=== PATIENT | male | born 1970 | race Caucasian/White ===

== ENCOUNTER → 2020-08-27 | Outpatient (CLI) | payer OTHER | END | disposition home or self-care (01) | LOC: WOUND 13:09 | PROVIDERS: ATTEND Internal Medicine | DX: E11.621 Type 2 diabetes mellitus with foot ulcer (principal); L97.521 Non-pressure chronic ulcer of other part of left foot limited to breakdown of skin; E11.622 Type 2 diabetes mellitus with other skin ulcer; L97.222 Non-pressure chronic ulcer of left calf with fat layer exposed; E11.40 Type 2 diabetes mellitus with diabetic neuropathy, unspecified; L03.116 Cellulitis of left lower limb; F32.9 Major depressive disorder, single episode, unspecified; I10 Essential (primary) hypertension; E66.01 Morbid (severe) obesity due to excess calories; L84 Corns and callosities; Z68.41 Body mass index [BMI] 40.0-44.9, adult; Z79.899 Other long term (current) drug therapy; Z79.4 Long term (current) use of insulin; Z79.82 Long term (current) use of aspirin; Z89.421 Acquired absence of other right toe(s); Z89.422 Acquired absence of other left toe(s); Z90.89 Acquired absence of other organs | CPT/HCPCS: 97597; G0463 ==

== ENCOUNTER 2020-09-03 13:33 | Outpatient (CLI) | payer OTHER | END 2020-09-03 23:59 | disposition home or self-care (01) | LOC: WOUND 13:33 | PROVIDERS: ATTEND Internal Medicine | DX: E11.621 Type 2 diabetes mellitus with foot ulcer (principal); L97.521 Non-pressure chronic ulcer of other part of left foot limited to breakdown of skin; E11.622 Type 2 diabetes mellitus with other skin ulcer; L97.222 Non-pressure chronic ulcer of left calf with fat layer exposed; E11.40 Type 2 diabetes mellitus with diabetic neuropathy, unspecified; L03.116 Cellulitis of left lower limb; F32.9 Major depressive disorder, single episode, unspecified; I10 Essential (primary) hypertension; E66.01 Morbid (severe) obesity due to excess calories; L84 Corns and callosities; Z68.41 Body mass index [BMI] 40.0-44.9, adult; Z79.899 Other long term (current) drug therapy; Z79.4 Long term (current) use of insulin; Z79.82 Long term (current) use of aspirin; Z89.421 Acquired absence of other right toe(s); Z89.422 Acquired absence of other left toe(s); Z90.89 Acquired absence of other organs | CPT/HCPCS: 97597 ==

== ENCOUNTER 2020-09-10 13:14 | Outpatient (CLI) | payer OTHER | END 2020-09-10 23:59 | disposition home or self-care (01) | LOC: WOUND 13:14 | PROVIDERS: ATTEND Internal Medicine | DX: E11.621 Type 2 diabetes mellitus with foot ulcer (principal); L97.521 Non-pressure chronic ulcer of other part of left foot limited to breakdown of skin; E11.622 Type 2 diabetes mellitus with other skin ulcer; L97.222 Non-pressure chronic ulcer of left calf with fat layer exposed; E11.40 Type 2 diabetes mellitus with diabetic neuropathy, unspecified; L03.116 Cellulitis of left lower limb; F32.9 Major depressive disorder, single episode, unspecified; I10 Essential (primary) hypertension; E66.01 Morbid (severe) obesity due to excess calories; L84 Corns and callosities; Z68.41 Body mass index [BMI] 40.0-44.9, adult; Z79.899 Other long term (current) drug therapy; Z79.4 Long term (current) use of insulin; Z79.82 Long term (current) use of aspirin; Z89.421 Acquired absence of other right toe(s); Z89.422 Acquired absence of other left toe(s); Z90.89 Acquired absence of other organs | CPT/HCPCS: 97597 ==

== ENCOUNTER → 2020-09-17 | Outpatient (CLI) | payer OTHER | END | disposition home or self-care (01) | LOC: CVU 12:58 | PROVIDERS: ATTEND Internal Medicine | DX: I70.293 Other atherosclerosis of native arteries of extremities, bilateral legs (principal); E11.8 Type 2 diabetes mellitus with unspecified complications; E11.621 Type 2 diabetes mellitus with foot ulcer; L97.222 Non-pressure chronic ulcer of left calf with fat layer exposed; Z89.422 Acquired absence of other left toe(s); Z89.421 Acquired absence of other right toe(s) | CPT/HCPCS: 93922; 93925; 93970 ==

== ENCOUNTER → 2020-09-24 | Outpatient (CLI) | payer OTHER | END | disposition home or self-care (01) | LOC: WOUND 12:55 | PROVIDERS: ATTEND Internal Medicine | DX: E11.621 Type 2 diabetes mellitus with foot ulcer (principal); I70.245 Atherosclerosis of native arteries of left leg with ulceration of other part of foot; L97.521 Non-pressure chronic ulcer of other part of left foot limited to breakdown of skin; E11.622 Type 2 diabetes mellitus with other skin ulcer; I70.242 Atherosclerosis of native arteries of left leg with ulceration of calf; L97.222 Non-pressure chronic ulcer of left calf with fat layer exposed; E11.40 Type 2 diabetes mellitus with diabetic neuropathy, unspecified; L03.116 Cellulitis of left lower limb; I70.201 Unspecified atherosclerosis of native arteries of extremities, right leg; I10 Essential (primary) hypertension; E66.01 Morbid (severe) obesity due to excess calories; F32.9 Major depressive disorder, single episode, unspecified; Z68.41 Body mass index [BMI] 40.0-44.9, adult; Z79.4 Long term (current) use of insulin; Z79.82 Long term (current) use of aspirin; Z90.89 Acquired absence of other organs; Z89.421 Acquired absence of other right toe(s); Z89.422 Acquired absence of other left toe(s) | CPT/HCPCS: 99212 ==

== ENCOUNTER → 2020-10-07 | Outpatient (CLI) | payer OTHER | END | disposition home or self-care (01) | LOC: WOUND 14:46 | PROVIDERS: ATTEND Internal Medicine | DX: E11.621 Type 2 diabetes mellitus with foot ulcer (principal); I70.245 Atherosclerosis of native arteries of left leg with ulceration of other part of foot; L97.522 Non-pressure chronic ulcer of other part of left foot with fat layer exposed; E11.622 Type 2 diabetes mellitus with other skin ulcer; I70.242 Atherosclerosis of native arteries of left leg with ulceration of calf; L97.222 Non-pressure chronic ulcer of left calf with fat layer exposed; E11.40 Type 2 diabetes mellitus with diabetic neuropathy, unspecified; L03.116 Cellulitis of left lower limb; I70.201 Unspecified atherosclerosis of native arteries of extremities, right leg; I10 Essential (primary) hypertension; L84 Corns and callosities; F32.9 Major depressive disorder, single episode, unspecified; E66.01 Morbid (severe) obesity due to excess calories; Z68.41 Body mass index [BMI] 40.0-44.9, adult; Z79.4 Long term (current) use of insulin; Z79.82 Long term (current) use of aspirin; Z90.89 Acquired absence of other organs; Z89.422 Acquired absence of other left toe(s); Z89.421 Acquired absence of other right toe(s); Z79.899 Other long term (current) drug therapy | CPT/HCPCS: 11042 ==

== ENCOUNTER → 2020-10-14 | Outpatient (CLI) | payer OTHER | END | disposition home or self-care (01) | LOC: WOUND 14:35 | PROVIDERS: ATTEND Podiatrist Foot & Ankle Surgery | DX: E11.621 Type 2 diabetes mellitus with foot ulcer (principal); I70.245 Atherosclerosis of native arteries of left leg with ulceration of other part of foot; L97.522 Non-pressure chronic ulcer of other part of left foot with fat layer exposed; E11.622 Type 2 diabetes mellitus with other skin ulcer; I70.242 Atherosclerosis of native arteries of left leg with ulceration of calf; L97.222 Non-pressure chronic ulcer of left calf with fat layer exposed; E11.40 Type 2 diabetes mellitus with diabetic neuropathy, unspecified; L03.116 Cellulitis of left lower limb; I70.201 Unspecified atherosclerosis of native arteries of extremities, right leg; I10 Essential (primary) hypertension; L84 Corns and callosities; F32.9 Major depressive disorder, single episode, unspecified; E66.01 Morbid (severe) obesity due to excess calories; Z68.41 Body mass index [BMI] 40.0-44.9, adult; Z79.4 Long term (current) use of insulin; Z79.82 Long term (current) use of aspirin; Z90.89 Acquired absence of other organs; Z89.422 Acquired absence of other left toe(s); Z89.421 Acquired absence of other right toe(s); Z79.899 Other long term (current) drug therapy | CPT/HCPCS: 11042 ==

== ENCOUNTER → 2020-10-19 | Outpatient (CLI) | payer OTHER | END | disposition home or self-care (01) | LOC: RAD 17:39 | PROVIDERS: ATTEND Podiatrist Foot & Ankle Surgery | DX: E11.621 Type 2 diabetes mellitus with foot ulcer (principal); L97.522 Non-pressure chronic ulcer of other part of left foot with fat layer exposed ==

== ENCOUNTER 2020-11-04 15:05 | Outpatient (CLI) | payer OTHER | END 2020-11-04 23:59 | disposition home or self-care (01) | LOC: WOUND 15:05 | PROVIDERS: ATTEND Podiatrist Foot & Ankle Surgery | DX: E11.621 Type 2 diabetes mellitus with foot ulcer (principal); I70.245 Atherosclerosis of native arteries of left leg with ulceration of other part of foot; L97.521 Non-pressure chronic ulcer of other part of left foot limited to breakdown of skin; E11.622 Type 2 diabetes mellitus with other skin ulcer; I70.242 Atherosclerosis of native arteries of left leg with ulceration of calf; L97.222 Non-pressure chronic ulcer of left calf with fat layer exposed; E11.40 Type 2 diabetes mellitus with diabetic neuropathy, unspecified; L03.116 Cellulitis of left lower limb; I70.201 Unspecified atherosclerosis of native arteries of extremities, right leg; I10 Essential (primary) hypertension; L84 Corns and callosities; F32.9 Major depressive disorder, single episode, unspecified; E66.01 Morbid (severe) obesity due to excess calories; Z68.41 Body mass index [BMI] 40.0-44.9, adult; Z79.4 Long term (current) use of insulin; Z79.82 Long term (current) use of aspirin; Z90.89 Acquired absence of other organs; Z89.422 Acquired absence of other left toe(s); Z89.421 Acquired absence of other right toe(s); Z79.899 Other long term (current) drug therapy | CPT/HCPCS: 97597 ==

== ENCOUNTER → 2020-11-11 | Outpatient (CLI) | payer OTHER | END | disposition home or self-care (01) | LOC: WOUND 14:48 | PROVIDERS: ATTEND Podiatrist Foot & Ankle Surgery | DX: E11.621 Type 2 diabetes mellitus with foot ulcer (principal); I70.245 Atherosclerosis of native arteries of left leg with ulceration of other part of foot; L97.522 Non-pressure chronic ulcer of other part of left foot with fat layer exposed; E11.622 Type 2 diabetes mellitus with other skin ulcer; I70.242 Atherosclerosis of native arteries of left leg with ulceration of calf; L97.222 Non-pressure chronic ulcer of left calf with fat layer exposed; E11.40 Type 2 diabetes mellitus with diabetic neuropathy, unspecified; L84 Corns and callosities; I10 Essential (primary) hypertension; E66.01 Morbid (severe) obesity due to excess calories; F32.9 Major depressive disorder, single episode, unspecified; Z68.41 Body mass index [BMI] 40.0-44.9, adult; Z79.4 Long term (current) use of insulin; Z79.82 Long term (current) use of aspirin; Z89.421 Acquired absence of other right toe(s); Z89.422 Acquired absence of other left toe(s) | CPT/HCPCS: 11042 ==

== ENCOUNTER → 2020-11-18 | Outpatient (CLI) | payer OTHER | END | disposition home or self-care (01) | LOC: WOUND 13:42 | PROVIDERS: ATTEND Podiatrist Foot & Ankle Surgery | DX: E11.621 Type 2 diabetes mellitus with foot ulcer (principal); I70.245 Atherosclerosis of native arteries of left leg with ulceration of other part of foot; L97.522 Non-pressure chronic ulcer of other part of left foot with fat layer exposed; E11.622 Type 2 diabetes mellitus with other skin ulcer; I70.242 Atherosclerosis of native arteries of left leg with ulceration of calf; L97.222 Non-pressure chronic ulcer of left calf with fat layer exposed; E11.40 Type 2 diabetes mellitus with diabetic neuropathy, unspecified; L84 Corns and callosities; I10 Essential (primary) hypertension; E66.01 Morbid (severe) obesity due to excess calories; F32.9 Major depressive disorder, single episode, unspecified; Z68.41 Body mass index [BMI] 40.0-44.9, adult; Z79.4 Long term (current) use of insulin; Z79.82 Long term (current) use of aspirin; Z89.421 Acquired absence of other right toe(s); Z89.422 Acquired absence of other left toe(s) | CPT/HCPCS: 11042 ==

== ENCOUNTER 2020-11-25 14:40 | Outpatient (CLI) | payer OTHER | END 2020-11-25 23:59 | disposition home or self-care (01) | LOC: WOUND 14:40 | PROVIDERS: ATTEND Podiatrist Foot & Ankle Surgery | DX: E11.621 Type 2 diabetes mellitus with foot ulcer (principal); I70.245 Atherosclerosis of native arteries of left leg with ulceration of other part of foot; L97.525 Non-pressure chronic ulcer of other part of left foot with muscle involvement without evidence of necrosis; I70.242 Atherosclerosis of native arteries of left leg with ulceration of calf; E11.622 Type 2 diabetes mellitus with other skin ulcer; L97.222 Non-pressure chronic ulcer of left calf with fat layer exposed; E11.40 Type 2 diabetes mellitus with diabetic neuropathy, unspecified; L84 Corns and callosities; I10 Essential (primary) hypertension; E66.01 Morbid (severe) obesity due to excess calories; F32.9 Major depressive disorder, single episode, unspecified; Z68.41 Body mass index [BMI] 40.0-44.9, adult; Z79.4 Long term (current) use of insulin; Z79.82 Long term (current) use of aspirin; Z89.421 Acquired absence of other right toe(s); Z89.422 Acquired absence of other left toe(s); Z79.899 Other long term (current) drug therapy | CPT/HCPCS: 11043; 87070; 87075; 87077; 87147; 87186; 87205 ==

== ENCOUNTER → 2020-12-09 | Outpatient (CLI) | payer OTHER | END | disposition home or self-care (01) | LOC: WOUND 13:34 | PROVIDERS: ATTEND Podiatrist Foot & Ankle Surgery | DX: E11.621 Type 2 diabetes mellitus with foot ulcer (principal); I70.245 Atherosclerosis of native arteries of left leg with ulceration of other part of foot; L97.526 Non-pressure chronic ulcer of other part of left foot with bone involvement without evidence of necrosis; E11.622 Type 2 diabetes mellitus with other skin ulcer; I70.242 Atherosclerosis of native arteries of left leg with ulceration of calf; L97.224 Non-pressure chronic ulcer of left calf with necrosis of bone; E11.40 Type 2 diabetes mellitus with diabetic neuropathy, unspecified; L03.116 Cellulitis of left lower limb; L84 Corns and callosities; I10 Essential (primary) hypertension; E66.01 Morbid (severe) obesity due to excess calories; M79.672 Pain in left foot; F32.9 Major depressive disorder, single episode, unspecified; Z68.41 Body mass index [BMI] 40.0-44.9, adult; Z79.84 Long term (current) use of oral hypoglycemic drugs; Z89.421 Acquired absence of other right toe(s); Z89.422 Acquired absence of other left toe(s); Z90.89 Acquired absence of other organs | CPT/HCPCS: 11044; 87070; 87075; 87077; 87147; 87186; 87205 ==

== ENCOUNTER → 2020-12-16 | Outpatient (CLI) | payer OTHER | END | disposition home or self-care (01) | LOC: WOUND 13:41 | PROVIDERS: ATTEND Podiatrist Foot & Ankle Surgery | DX: E11.621 Type 2 diabetes mellitus with foot ulcer (principal); I70.245 Atherosclerosis of native arteries of left leg with ulceration of other part of foot; L97.526 Non-pressure chronic ulcer of other part of left foot with bone involvement without evidence of necrosis; I70.234 Atherosclerosis of native arteries of right leg with ulceration of heel and midfoot; L97.414 Non-pressure chronic ulcer of right heel and midfoot with necrosis of bone; E11.622 Type 2 diabetes mellitus with other skin ulcer; L97.222 Non-pressure chronic ulcer of left calf with fat layer exposed; E11.40 Type 2 diabetes mellitus with diabetic neuropathy, unspecified; E11.69 Type 2 diabetes mellitus with other specified complication; M86.272 Subacute osteomyelitis, left ankle and foot; L03.116 Cellulitis of left lower limb; I10 Essential (primary) hypertension; E66.01 Morbid (severe) obesity due to excess calories; F32.9 Major depressive disorder, single episode, unspecified; Z79.84 Long term (current) use of oral hypoglycemic drugs; Z68.41 Body mass index [BMI] 40.0-44.9, adult; Z89.421 Acquired absence of other right toe(s); Z89.422 Acquired absence of other left toe(s); Z90.89 Acquired absence of other organs | CPT/HCPCS: 11044 ==

== ENCOUNTER 2020-12-21 10:04 | Outpatient (CLI) | payer OTHER | END 2020-12-21 23:59 | disposition home or self-care (01) | LOC: WOUND 10:04 | PROVIDERS: ATTEND Internal Medicine Infectious Disease | DX: E11.621 Type 2 diabetes mellitus with foot ulcer (principal); I70.234 Atherosclerosis of native arteries of right leg with ulceration of heel and midfoot; L97.414 Non-pressure chronic ulcer of right heel and midfoot with necrosis of bone; I70.245 Atherosclerosis of native arteries of left leg with ulceration of other part of foot; L97.526 Non-pressure chronic ulcer of other part of left foot with bone involvement without evidence of necrosis; I70.242 Atherosclerosis of native arteries of left leg with ulceration of calf; E11.622 Type 2 diabetes mellitus with other skin ulcer; L97.222 Non-pressure chronic ulcer of left calf with fat layer exposed; L03.116 Cellulitis of left lower limb; E11.40 Type 2 diabetes mellitus with diabetic neuropathy, unspecified; E11.69 Type 2 diabetes mellitus with other specified complication; M86.272 Subacute osteomyelitis, left ankle and foot; I10 Essential (primary) hypertension; E66.01 Morbid (severe) obesity due to excess calories; F32.9 Major depressive disorder, single episode, unspecified; A49.01 Methicillin susceptible Staphylococcus aureus infection, unspecified site; L84 Corns and callosities; Z68.41 Body mass index [BMI] 40.0-44.9, adult; Z89.421 Acquired absence of other right toe(s); Z89.422 Acquired absence of other left toe(s); Z90.89 Acquired absence of other organs; Z79.82 Long term (current) use of aspirin; Z79.4 Long term (current) use of insulin; Z79.899 Other long term (current) drug therapy | CPT/HCPCS: 71046; 99214 ==

== ENCOUNTER 2020-12-21 11:20 | Outpatient (CLI) | payer OTHER | END 2020-12-21 23:59 | disposition home or self-care (01) | LOC: CFH 11:20 | PROVIDERS: ATTEND Internal Medicine Infectious Disease | DX: Z02.9 Encounter for administrative examinations, unspecified (principal) ==

== ENCOUNTER 2020-12-28 12:05 | Inpatient (IN) | payer OTHER ==
[~2020-12-28] VITALS: Ht 180.3 cm; Wt 155.3 kg
[2020-12-28] MEDS ORDERED: SODIUM CHLORIDE FLUSH 10ML SYR IVF ONE (12:30)
[2020-12-28] MEDS ORDERED: ACETAMINOPHEN 500 MG TABLET PO ONE (12:30)
[2020-12-28] MEDS ORDERED: SODIUM CHLORIDE 0.9% 1,000ML IVBOLUS ONE (12:30)
[2020-12-28] MEDS ORDERED: ACETAMINOPHEN 500 MG TABLET ONE (12:45)
[2020-12-28 12:56] LABS: BASOPHILS % (AUTO) 0 % (0-1); EOSINOPHILS % (AUTO) 0 % (1-7); LYMPHOCYTES % (AUTO) 5 % (22-44); MEAN CORPUSCULAR HEMOGLOBIN 30.5 pg (27.5-34.5); MEAN CORPUSCULAR HGB CONC 34.3 g/dL (33.2-36.2); MEAN PLATELET VOLUME 8.1 fL (7.4-10.4); MONOCYTES % (AUTO) 8 % (2-9); NEUTROPHILS % (AUTO) 86 % (42-75); PLATELET COUNT 591 x10^3/uL (130-400); RED BLOOD COUNT 3.94 x10^6/uL (4.38-5.82); RED CELL DISTRIBUTION WIDTH 13.6 % (9.4-14.8)
[2020-12-28 13:10] LABS: ALANINE AMINOTRANSFERASE 16 U/L (12-78); ALBUMIN 2.1 g/dL (3.4-5.0); ANION GAP 13 mmol/L (5-15); CALCIUM 9.1 mg/dL (8.5-10.1); CHLORIDE 100 mmol/L (98-107)
--- NOTE | 2020-12-28 13:10 | NUR ---
PT sent by DR Colin for nonhealing left foot wound. IMANI Joy at bedside for evaluation
[2020-12-28 13:13] LABS: ALKALINE PHOSPHATASE 167 U/L (45-117); BILIRUBIN,TOTAL 0.9 mg/dL (0.2-1.0); TOTAL PROTEIN 8.2 g/dL (6.4-8.2)
[2020-12-28] MEDS ORDERED: VANCOMYCIN 2,500 MG in SODIUM CHLORIDE 0.9% 500 ML IV ONE (13:30)
[2020-12-28] MEDS ORDERED: VANCOMYCIN PER PHARMACY MC PRN ×2 (13:30→15:00)
[2020-12-28] MEDS ORDERED: PIPERACILLIN/TAZO 3.375 GM in DEXTROSE 5% 50 ML IVPB ONE (13:30)
[2020-12-28] MEDS ORDERED: ONDANSETRON 2MG/ML, 2ML IVPush PRN (14:00)
[2020-12-28] MEDS ORDERED: ACETAMINOPHEN 325 MG TABLET PO PRN ×2 (14:00→15:00)
--- NOTE | 2020-12-28 14:15 | NUR ---
TASK RN: PT REPORTS PIV CAME OUT UPON ROLLING OVER ON [facility]. NEW PIV STARTED BY HAMZAH RAMOS. 2ND ABX STARTED. CULTURE BAND IN PLACE.
--- NOTE | 2020-12-28 14:20 | NUR ---
PER ERP PT NOT NPO AT THIS TIME. PT PROVIDED W/ WATER PER PT REQUEST.
--- NOTE | 2020-12-28 14:30 | NUR ---
This RN called to get report was on hold for 5 min.
[2020-12-28 14:45] LABS: HCT (SEDRATE) 35.1 % (39.2-51.8)
--- NOTE | 2020-12-28 14:55 | NUR ---
report given to receiving malvin gonzalez
[2020-12-28] MEDS ORDERED: ENOXAPARIN 40 MG/0.4 ML SQ SCH (15:00)
[2020-12-28] MEDS ORDERED: PHARMACOKINETIC MONITORING MC PRN (16:00)
[2020-12-28] MEDS: AMPICILLIN/SULBACTAM 3 GM in SODIUM CHLORIDE 0.9% 100 ML IV SCH ×2 (16:20→21:22)
[2020-12-28 16:37] VITALS: BP 146/78
[2020-12-28] MEDS ORDERED: INSU3INS SQ (17:15)
[2020-12-28] MEDS ORDERED: PIOG30TA67 PO (17:15)
[2020-12-28] MEDS ORDERED: DAPA10TA PO (17:15)
[2020-12-28] MEDS ORDERED: METO25TA91 PO (17:15)
[2020-12-28] MEDS ORDERED: LISI40TA9 PO (17:15)
[2020-12-28] MEDS ORDERED: EMTR1TAB24 PO (17:15)
[2020-12-28] MEDS ORDERED: INSU100I18 SQ (17:15)
[2020-12-28] MEDS ORDERED: ESCI10TA97 PO (17:15)
[2020-12-28] MEDS ORDERED: MULT-658 PO (17:17)
[2020-12-28] MEDS ORDERED: ASPI-963 PO (17:17)
[2020-12-28] MEDS ORDERED: DORZ10DR28 LEFTEYE (17:20)
[2020-12-28] MEDS: LISINOPRIL 10 MG TABLET PO SCH (19:50)
[2020-12-28] MEDS: OXYcodone/APAP 10/325MG TABLET PO PRN (19:53)
[2020-12-28] MEDS: MELATONIN 5 MG TABLET PO SCH (21:21)
[2020-12-28] MEDS: INSULIN LISPRO 100 UNITS/ML, PEN SQ-INSULIN SCH (21:23)
[2020-12-28 21:37] VITALS: BP 138/72
[2020-12-29] MEDS: OXYcodone/APAP 10/325MG TABLET PO PRN ×3 (00:01→19:55)
[2020-12-29 00:42] VITALS: BP 145/71
[2020-12-29] MEDS: VANCOMYCIN 2,200 MG in SODIUM CHLORIDE 0.9% 500 ML IV SCH ×2 (02:31→14:26)
[2020-12-29] MEDS: MORPHINE SULFATE 4 MG/ML, 1ML IVPush PRN (03:01)
[2020-12-29] MEDS: AMPICILLIN/SULBACTAM 3 GM in SODIUM CHLORIDE 0.9% 100 ML IV SCH ×4 (04:38→23:57)
[2020-12-29 05:26] LABS: BASOPHILS % (AUTO) 1 % (0-1); EOSINOPHILS % (AUTO) 1 % (1-7); LYMPHOCYTES % (AUTO) 11 % (22-44); MEAN CORPUSCULAR HEMOGLOBIN 30.3 pg (27.5-34.5); MEAN CORPUSCULAR HGB CONC 33.3 g/dL (33.2-36.2); MEAN PLATELET VOLUME 8.3 fL (7.4-10.4); MONOCYTES % (AUTO) 12 % (2-9); NEUTROPHILS % (AUTO) 75 % (42-75); PLATELET COUNT 549 x10^3/uL (130-400); RED BLOOD COUNT 3.44 x10^6/uL (4.38-5.82); RED CELL DISTRIBUTION WIDTH 13.7 % (9.4-14.8)
[2020-12-29 05:37] LABS: ALBUMIN 1.7 g/dL (3.4-5.0); ANION GAP 8 mmol/L (5-15); CALCIUM 8.4 mg/dL (8.5-10.1); CHLORIDE 104 mmol/L (98-107)
[2020-12-29 05:43] LABS: ALANINE AMINOTRANSFERASE 15 U/L (12-78); ALKALINE PHOSPHATASE 159 U/L (45-117); BILIRUBIN,TOTAL 0.7 mg/dL (0.2-1.0); CREATININE 1.33 mg/dL (0.7-1.3); TOTAL PROTEIN 7.4 g/dL (6.4-8.2)
[2020-12-29] MEDS: INSULIN LISPRO 100 UNITS/ML, PEN SQ-INSULIN SCH ×4 (07:00→20:25)
[2020-12-29] MEDS: OXYcodone IR 5MG TABLET PO PRN ×2 (07:52→14:42)
[2020-12-29] MEDS: ENOXAPARIN 40 MG/0.4 ML SQ SCH ×2 (09:00→20:24)
[2020-12-29 09:29] VITALS: BP 143/78
[2020-12-29] MEDS: LISINOPRIL 10 MG TABLET PO SCH ×2 (09:32→20:24)
[2020-12-29 14:30] VITALS: BP 146/78
[2020-12-29] MEDS ORDERED: GADOTERATE 7.5 MMOL/15ML SYR ONE (16:30)
[2020-12-29 18:57] VITALS: BP 155/68
[2020-12-29] MEDS: MELATONIN 5 MG TABLET PO SCH (20:24)
[2020-12-30 00:33] VITALS: BP 124/77
[2020-12-30] MEDS: OXYcodone IR 5MG TABLET PO PRN ×3 (01:09→22:26)
[2020-12-30] MEDS: VANCOMYCIN 2,200 MG in SODIUM CHLORIDE 0.9% 500 ML IV SCH (02:34)
[2020-12-30] MEDS: AMPICILLIN/SULBACTAM 3 GM in SODIUM CHLORIDE 0.9% 100 ML IV SCH ×4 (06:09→23:50)
[2020-12-30] MEDS: INSULIN LISPRO 100 UNITS/ML, PEN SQ-INSULIN SCH ×4 (07:38→20:30)
[2020-12-30 07:40] VITALS: BP 164/73
[2020-12-30] MEDS: LISINOPRIL 10 MG TABLET PO SCH ×2 (07:40→20:29)
[2020-12-30] MEDS: ENOXAPARIN 40 MG/0.4 ML SQ SCH ×2 (09:00→20:03)
[2020-12-30 09:26] VITALS: BP 150/74
[2020-12-30] MEDS: OXYcodone/APAP 10/325MG TABLET PO PRN ×2 (10:04→18:05)
[2020-12-30 13:25] VITALS: BP 137/90
[2020-12-30 19:22] VITALS: BP 150/76
[2020-12-30] MEDS: MELATONIN 5 MG TABLET PO SCH (20:29)
[2020-12-31 00:04] VITALS: BP 138/73
[2020-12-31] MEDS ORDERED: MEROPENEM 1 GM in SODIUM CHLORIDE 0.9% 100 ML IV SCH (01:00)
[2020-12-31] MEDS: OXYcodone/APAP 10/325MG TABLET PO PRN ×2 (04:06→20:21)
[2020-12-31 06:37] VITALS: BP 137/76
[2020-12-31] MEDS: OXYcodone IR 5MG TABLET PO PRN (06:47)
[2020-12-31] MEDS: INSULIN LISPRO 100 UNITS/ML, PEN SQ-INSULIN SCH ×4 (07:00→20:22)
[2020-12-31] MEDS: LISINOPRIL 10 MG TABLET PO SCH ×2 (07:52→20:20)
[2020-12-31] MEDS: ENOXAPARIN 40 MG/0.4 ML SQ SCH ×2 (07:52→20:21)
[2020-12-31] MEDS ORDERED: BUPIVACAINE/PF 0.5% ONE (10:46)
[2020-12-31] MEDS ORDERED: LIDOCAINE/PF 1%, 30ML ONE (10:46)
[2020-12-31] MEDS: MEROPENEM 1 GM in SODIUM CHLORIDE 0.9% 100 ML IV SCH ×2 (11:00→18:14)
[2020-12-31] MEDS ORDERED: MIDAZOLAM 1 MG/ML, 2ML ONE (11:15)
[2020-12-31] MEDS ORDERED: FENTANYL PF 250 MCG/5ML ONE (11:15)
[2020-12-31] MEDS ORDERED: CHLORHEXIDINE 15 ML UDC ONE (11:33)
[2020-12-31] MEDS ORDERED: CHLORHEXIDINE 15 ML UDC PO ONE (12:00)
[2020-12-31] MEDS ORDERED: VANCOMYCIN 1,000 MG ONE (12:56)
[2020-12-31] MEDS ORDERED: METHOCARBAMOL 1,000 MG in DEXTROSE 5% 100 ML IV PRN (13:30)
[2020-12-31] MEDS ORDERED: LABETALOL 5MG/ML, 20ML IV PRN (13:30)
[2020-12-31] MEDS ORDERED: PROMETHAZINE 25 MG SUPP PR PRN (13:30)
[2020-12-31] MEDS ORDERED: hydrALAzine 20 MG/ML, 1ML IV PRN (13:30)
[2020-12-31] MEDS ORDERED: PROMETHAZINE 25 MG/ML, 1ML IVPush PRN (13:30)
[2020-12-31] MEDS ORDERED: LORazepam 2 MG/ML, 1ML IVPush PRN (13:30)
[2020-12-31] MEDS ORDERED: ONDANSETRON 2MG/ML, 2ML IVPush PRN ×2 (13:30→16:30)
[2020-12-31] MEDS ORDERED: OXYcodone 5 MG/5 ML ORAL.SOL UDC PO PRN (13:30)
[2020-12-31] MEDS ORDERED: ACETAMINOPHEN 325 MG TABLET PO PRN (13:30)
[2020-12-31] MEDS ORDERED: MEPERIDINE/PF 25MG/0.5ML IVPush PRN (13:30)
[2020-12-31] MEDS ORDERED: SUCCINYLCHOLINE 20 MG/ML, 10ML ONE (14:13)
[2020-12-31] MEDS ORDERED: ONDANSETRON 2MG/ML, 2ML ONE (14:13)
[2020-12-31] MEDS ORDERED: CEFAZOLIN 1,000 MG ONE (14:13)
[2020-12-31] MEDS ORDERED: NEOSTIGMINE 1 MG/ML, 10ML ONE (14:13)
[2020-12-31] MEDS ORDERED: GLYCOPYRROLATE 0.2MG/1ML, 5ML ONE (14:13)
[2020-12-31] MEDS ORDERED: SUGAMMADEX 200 MG/2 ML IVPush ONE (14:13)
[2020-12-31] MEDS ORDERED: PROPOFOL 10 MG/ML, 20ML ONE (14:13)
[2020-12-31] MEDS ORDERED: DEXAMETHASONE 4 MG/ML, 1ML ONE (14:13)
[2020-12-31] MEDS ORDERED: ROCURONIUM 10MG/ML,5ML ONE (14:13)
[2020-12-31] MEDS ORDERED: OXYcodone 5 MG/5 ML ORAL.SOL UDC ONE (14:27)
[2020-12-31] MEDS ORDERED: FENTANYL PF 100 MCG/2ML ONE ×2 (14:27→15:17)
[2020-12-31] MEDS: FENTANYL PF 100 MCG/2ML IV PRN ×4 (14:31→15:30)
[2020-12-31] MEDS ORDERED: HYDROmorphone 1 MG/ML, 1ML INJ ONE (14:41)
[2020-12-31] MEDS: HYDROmorphone 1 MG/ML, 1ML INJ IVPush PRN ×2 (14:42→14:47)
[2020-12-31] MEDS ORDERED: hydrALAzine 20 MG/ML, 1ML ONE (15:04)
[2020-12-31] MEDS ORDERED: KETOROLAC 30 MG/1 ML IM PRN (16:30)
[2020-12-31] MEDS ORDERED: HYDROmorphone 1 MG/ML, 1ML INJ IV PRN (16:30)
[2020-12-31] MEDS ORDERED: HYDROcodone/APAP 5/325 TABLET PO PRN (16:30)
[2020-12-31] MEDS ORDERED: OXYcodone/APAP 5/325MG TABLET PO PRN (16:30)
[2020-12-31] MEDS: MORPHINE SULFATE 4 MG/ML, 1ML IVPush PRN ×2 (16:46→21:56)
[2020-12-31 19:01] VITALS: BP 135/68
[2020-12-31] MEDS: MELATONIN 5 MG TABLET PO SCH (20:20)
[2020-12-31] MEDS: DOCUSATE 100 MG CAPSULE PO SCH (20:20)
[2020-12-31] MEDS ORDERED: CEFAZOLIN 1,000 MG IV SCH (22:30)
[2020-12-31] MEDS: CEFAZOLIN PMX 2GM/50ML 50 ML IVPB SCH (22:38)
[2020-12-31 23:22] VITALS: BP 129/74
[2021-01-01] MEDS: OXYcodone/APAP 10/325MG TABLET PO PRN ×3 (01:30→23:03)
[2021-01-01] MEDS: MEROPENEM 1 GM in SODIUM CHLORIDE 0.9% 100 ML IV SCH ×3 (02:45→22:13)
[2021-01-01 04:08] VITALS: BP 134/72
[2021-01-01] MEDS: CEFAZOLIN PMX 2GM/50ML 50 ML IVPB SCH (06:26)
[2021-01-01 07:30] VITALS: BP 159/85
[2021-01-01] MEDS: MORPHINE SULFATE 4 MG/ML, 1ML IVPush PRN ×2 (07:48→15:00)
[2021-01-01] MEDS: DOCUSATE 100 MG CAPSULE PO SCH ×2 (07:50→22:14)
[2021-01-01] MEDS: LISINOPRIL 10 MG TABLET PO SCH ×2 (07:50→22:14)
[2021-01-01] MEDS: ENOXAPARIN 40 MG/0.4 ML SQ SCH ×2 (07:52→22:14)
[2021-01-01] MEDS: INSULIN LISPRO 100 UNITS/ML, PEN SQ-INSULIN SCH ×4 (07:53→23:02)
[2021-01-01 15:01] VITALS: BP 145/79
[2021-01-01 20:00] VITALS: BP 118/63
[2021-01-01] MEDS: MELATONIN 5 MG TABLET PO SCH (22:14)
[2021-01-02 02:00] VITALS: BP 153/77
[2021-01-02] MEDS: OXYcodone/APAP 10/325MG TABLET PO PRN ×2 (04:52→11:40)
[2021-01-02 05:02] LABS: BASOPHILS % (AUTO) 0 % (0-1); EOSINOPHILS % (AUTO) 4 % (1-7); LYMPHOCYTES % (AUTO) 24 % (22-44); MEAN CORPUSCULAR HEMOGLOBIN 29.9 pg (27.5-34.5); MEAN CORPUSCULAR HGB CONC 33.5 g/dL (33.2-36.2); MONOCYTES % (AUTO) 13 % (2-9); NEUTROPHILS % (AUTO) 58 % (42-75); PLATELET COUNT 577 x10^3/uL (130-400); RED BLOOD COUNT 3.52 x10^6/uL (4.38-5.82); RED CELL DISTRIBUTION WIDTH 14.2 % (9.4-14.8)
[2021-01-02 05:12] LABS: ALBUMIN 1.6 g/dL (3.4-5.0); ANION GAP 6 mmol/L (5-15); CALCIUM 8.4 mg/dL (8.5-10.1); CHLORIDE 104 mmol/L (98-107)
[2021-01-02] MEDS: MEROPENEM 1 GM in SODIUM CHLORIDE 0.9% 100 ML IV SCH ×3 (05:43→20:43)
[2021-01-02] MEDS: INSULIN LISPRO 100 UNITS/ML, PEN SQ-INSULIN SCH ×4 (07:35→21:04)
[2021-01-02] MEDS: LISINOPRIL 10 MG TABLET PO SCH ×2 (09:00→20:42)
[2021-01-02] MEDS ORDERED: LISINOPRIL 40 MG TABLET PO SCH (09:00)
[2021-01-02] MEDS ORDERED: METOPROLOL SUCCINATE 25 MG TAB.ER.24H PO SCH (09:00)
[2021-01-02] MEDS: EMTRICITABINE/TENOFOVIR 200 MG/300 MG TABLET PO SCH (09:28)
[2021-01-02] MEDS: DOCUSATE 100 MG CAPSULE PO SCH ×2 (09:28→20:43)
[2021-01-02] MEDS: ASPIRIN 81 MG TABLET EC PO SCH (09:28)
[2021-01-02] MEDS: ESCITALOPRAM 10MG TABLET PO SCH (09:28)
[2021-01-02] MEDS: MULTIVITAMIN 1 TABLET PO SCH (09:28)
[2021-01-02] MEDS: ENOXAPARIN 40 MG/0.4 ML SQ SCH ×2 (09:29→20:43)
[2021-01-02 09:40] VITALS: BP 184/81
[2021-01-02] MEDS ORDERED: KETOROLAC 30 MG/1 ML IM PRN (10:00)
[2021-01-02] MEDS ORDERED: MORPHINE SULFATE 4 MG/ML, 1ML IVPush PRN (11:00)
[2021-01-02] MEDS: SODIUM CHLORIDE 0.9% 1,000 ML IV SCH (11:40)
[2021-01-02] MEDS ORDERED: ACETAMINOPHEN 325 MG TABLET PO SCH (12:00)
[2021-01-02 13:11] VITALS: BP 175/73
[2021-01-02] MEDS: ACETAMINOPHEN 325 MG TABLET PO SCH ×2 (13:51→20:43)
[2021-01-02] MEDS: OXYcodone 5 MG/5 ML ORAL.SOL UDC PO PRN (18:09)
[2021-01-02] MEDS: CARVEDILOL 6.25 MG TABLET PO SCH (18:10)
[2021-01-02 20:01] VITALS: BP 160/78
[2021-01-02] MEDS: MELATONIN 5 MG TABLET PO SCH (20:43)
[2021-01-03] MEDS: SODIUM CHLORIDE 0.9% 1,000 ML IV SCH ×3 (01:22→22:32)
[2021-01-03] MEDS: ACETAMINOPHEN 325 MG TABLET PO SCH ×4 (01:22→22:30)
[2021-01-03 01:45] VITALS: BP 169/82
[2021-01-03 04:59] LABS: BASOPHILS % (AUTO) 1 % (0-1); EOSINOPHILS % (AUTO) 3 % (1-7); LYMPHOCYTES % (AUTO) 27 % (22-44); MEAN CORPUSCULAR HEMOGLOBIN 30.2 pg (27.5-34.5); MEAN CORPUSCULAR HGB CONC 33.8 g/dL (33.2-36.2); MEAN PLATELET VOLUME 7.9 fL (7.4-10.4); MONOCYTES % (AUTO) 21 % (2-9); NEUTROPHILS % (AUTO) 48 % (42-75); PLATELET COUNT 511 x10^3/uL (130-400); RED BLOOD COUNT 3.54 x10^6/uL (4.38-5.82); RED CELL DISTRIBUTION WIDTH 14.1 % (9.4-14.8)
[2021-01-03 05:05] LABS: ALBUMIN 1.7 g/dL (3.4-5.0); ANION GAP 5 mmol/L (5-15); CALCIUM 8.3 mg/dL (8.5-10.1); CHLORIDE 104 mmol/L (98-107)
[2021-01-03 05:12] LABS: HCT (SEDRATE) 31.7 % (39.2-51.8)
[2021-01-03 05:16] VITALS: BP 178/77
[2021-01-03 05:16] LABS: % IRON SATURATION 25 % (20-55); ALANINE AMINOTRANSFERASE 10 U/L (12-78); ALKALINE PHOSPHATASE 164 U/L (45-117); BILIRUBIN,TOTAL 0.3 mg/dL (0.2-1.0); CREATININE 1.28 mg/dL (0.7-1.3); IRON LEVEL 33 mcg/dL (65-175); TOTAL IRON BINDING CAPACITY 130 mcg/dL (250-450)
[2021-01-03] MEDS: CARVEDILOL 6.25 MG TABLET PO SCH ×2 (05:17→18:21)
[2021-01-03] MEDS: MEROPENEM 1 GM in SODIUM CHLORIDE 0.9% 100 ML IV SCH (05:17)
[2021-01-03 07:36] VITALS: BP 175/81
[2021-01-03] MEDS: OXYcodone 5 MG/5 ML ORAL.SOL UDC PO PRN ×2 (08:24→22:40)
[2021-01-03] MEDS: INSULIN LISPRO 100 UNITS/ML, PEN SQ-INSULIN SCH ×4 (08:27→22:39)
[2021-01-03] MEDS: MULTIVITAMIN 1 TABLET PO SCH (08:28)
[2021-01-03] MEDS: ESCITALOPRAM 10MG TABLET PO SCH (08:28)
[2021-01-03] MEDS: LISINOPRIL 10 MG TABLET PO SCH ×2 (08:28→22:31)
[2021-01-03] MEDS: EMTRICITABINE/TENOFOVIR 200 MG/300 MG TABLET PO SCH (08:29)
[2021-01-03] MEDS: ASPIRIN 81 MG TABLET EC PO SCH (08:29)
[2021-01-03] MEDS: BISACODYL 10 MG SUPP PR SCH (08:31)
[2021-01-03] MEDS: ENOXAPARIN 40 MG/0.4 ML SQ SCH ×2 (08:32→22:49)
[2021-01-03] MEDS: AMOXICILLIN/CLAV 500-125MG TABLET PO SCH ×2 (11:55→18:21)
[2021-01-03 13:23] VITALS: BP 167/96
[2021-01-03] MEDS ORDERED: metFORMIN 500 MG TABLET PO SCH (16:30)
[2021-01-03 19:21] VITALS: BP 155/78
[2021-01-03] MEDS: MELATONIN 5 MG TABLET PO SCH (22:31)
[2021-01-03] MEDS: SENNOSIDES 8.6 MG TABLET PO SCH (22:31)
[2021-01-03] MEDS: INSULIN GLARGINE 100 UNITS/ML, PEN SQ-INSULIN SCH (22:38)
[2021-01-04] MEDS: ACETAMINOPHEN 325 MG TABLET PO SCH ×4 (02:55→22:10)
[2021-01-04] MEDS: AMOXICILLIN/CLAV 500-125MG TABLET PO SCH (02:55)
[2021-01-04 03:27] VITALS: BP 153/73
[2021-01-04] MEDS: CARVEDILOL 6.25 MG TABLET PO SCH ×2 (06:14→17:29)
[2021-01-04] MEDS: OXYcodone 5 MG/5 ML ORAL.SOL UDC PO PRN ×2 (06:16→22:10)
[2021-01-04] MEDS: INSULIN LISPRO 100 UNITS/ML, PEN SQ-INSULIN SCH ×4 (07:58→22:38)
[2021-01-04] MEDS: ENOXAPARIN 40 MG/0.4 ML SQ SCH ×2 (07:58→22:11)
[2021-01-04] MEDS: MULTIVITAMIN 1 TABLET PO SCH (07:59)
[2021-01-04] MEDS: EMTRICITABINE/TENOFOVIR 200 MG/300 MG TABLET PO SCH (07:59)
[2021-01-04] MEDS: LISINOPRIL 10 MG TABLET PO SCH ×2 (07:59→22:09)
[2021-01-04] MEDS: ASPIRIN 81 MG TABLET EC PO SCH (08:00)
[2021-01-04 08:25] VITALS: BP 150/83
[2021-01-04] MEDS ORDERED: METHYLNALTREXONE 12 MG/0.6 ML SYR SQ ONE (08:30)
[2021-01-04] MEDS: BISACODYL 10 MG SUPP PR SCH (09:00)
[2021-01-04] MEDS: ESCITALOPRAM 10MG TABLET PO SCH (11:02)
[2021-01-04] MEDS: AMOXICILLIN/CLAV 875-125MG TABLET PO SCH ×2 (11:02→15:59)
[2021-01-04] MEDS: SODIUM CHLORIDE 0.9% 1,000 ML IV SCH (12:40)
[2021-01-04 14:00] VITALS: BP 159/79
[2021-01-04 19:00] VITALS: BP 153/81
[2021-01-04] MEDS: MELATONIN 5 MG TABLET PO SCH (22:08)
[2021-01-04] MEDS: SENNOSIDES 8.6 MG TABLET PO SCH (22:09)
[2021-01-04] MEDS: INSULIN GLARGINE 100 UNITS/ML, PEN SQ-INSULIN SCH (22:39)
[2021-01-05 01:50] VITALS: BP 141/63
[2021-01-05] MEDS: SODIUM CHLORIDE 0.9% 1,000 ML IV SCH (02:00)
[2021-01-05] MEDS: AMOXICILLIN/CLAV 875-125MG TABLET PO SCH ×3 (03:53→17:10)
[2021-01-05] MEDS: ACETAMINOPHEN 325 MG TABLET PO SCH ×4 (03:53→21:11)
[2021-01-05] MEDS: OXYcodone 5 MG/5 ML ORAL.SOL UDC PO PRN (06:05)
[2021-01-05] MEDS: CARVEDILOL 6.25 MG TABLET PO SCH ×2 (06:05→17:10)
[2021-01-05 07:24] VITALS: BP 147/75
[2021-01-05] MEDS: ESCITALOPRAM 10MG TABLET PO SCH (07:59)
[2021-01-05] MEDS: MULTIVITAMIN 1 TABLET PO SCH (07:59)
[2021-01-05] MEDS: ASPIRIN 81 MG TABLET EC PO SCH (07:59)
[2021-01-05] MEDS: LISINOPRIL 10 MG TABLET PO SCH ×2 (07:59→21:11)
[2021-01-05] MEDS: INSULIN LISPRO 100 UNITS/ML, PEN SQ-INSULIN SCH ×5 (08:00→21:16)
[2021-01-05] MEDS ORDERED: BISACODYL 10 MG SUPP PR PRN (08:30)
[2021-01-05] MEDS: EMTRICITABINE/TENOFOVIR 200 MG/300 MG TABLET PO SCH (09:14)
[2021-01-05] MEDS: ENOXAPARIN 40 MG/0.4 ML SQ SCH ×2 (09:14→21:12)
[2021-01-05 14:24] VITALS: BP 166/72
[2021-01-05 18:57] VITALS: BP 139/69
[2021-01-05] MEDS: TIMOLOL OPHTH 0.5%, 5ML LEFTEYE SCH (21:00)
[2021-01-05] MEDS ORDERED: INSULIN GLARGINE 100 UNITS/ML, PEN SQ-INSULIN SCH (21:00)
[2021-01-05] MEDS: DORZOLAMIDE OPHTH 2%, 10ML LEFTEYE SCH (21:10)
[2021-01-05] MEDS: MELATONIN 5 MG TABLET PO SCH (21:11)
[2021-01-05] MEDS: SENNOSIDES 8.6 MG TABLET PO SCH (21:11)
[2021-01-06 01:17] VITALS: BP 166/80
[2021-01-06] MEDS: AMOXICILLIN/CLAV 875-125MG TABLET PO SCH ×3 (03:24→18:05)
[2021-01-06] MEDS: ACETAMINOPHEN 325 MG TABLET PO SCH ×4 (03:25→21:16)
[2021-01-06] MEDS: CARVEDILOL 6.25 MG TABLET PO SCH ×2 (06:30→18:06)
[2021-01-06 07:20] VITALS: BP 153/85
[2021-01-06] MEDS: INSULIN LISPRO 100 UNITS/ML, PEN SQ-INSULIN SCH ×4 (08:42→21:18)
[2021-01-06] MEDS: ENOXAPARIN 40 MG/0.4 ML SQ SCH ×2 (08:42→21:16)
[2021-01-06] MEDS: DORZOLAMIDE OPHTH 2%, 10ML LEFTEYE SCH ×2 (08:43→21:17)
[2021-01-06] MEDS: EMTRICITABINE/TENOFOVIR 200 MG/300 MG TABLET PO SCH (08:44)
[2021-01-06] MEDS: ESCITALOPRAM 10MG TABLET PO SCH (08:45)
[2021-01-06] MEDS: MULTIVITAMIN 1 TABLET PO SCH (08:45)
[2021-01-06] MEDS: LISINOPRIL 10 MG TABLET PO SCH ×2 (08:45→21:15)
[2021-01-06] MEDS: ASPIRIN 81 MG TABLET EC PO SCH (08:46)
[2021-01-06] MEDS: TIMOLOL OPHTH 0.5%, 5ML LEFTEYE SCH ×2 (08:46→21:00)
[2021-01-06] MEDS: ISOSORBIDE DINITRATE 10 MG TABLET PO SCH ×3 (08:59→21:15)
[2021-01-06 14:30] VITALS: BP 151/77
[2021-01-06 18:34] VITALS: BP 147/68
[2021-01-06] MEDS: SENNOSIDES 8.6 MG TABLET PO SCH (21:00)
[2021-01-06] MEDS: MELATONIN 5 MG TABLET PO SCH (21:16)
[2021-01-06] MEDS: INSULIN GLARGINE 100 UNITS/ML, PEN SQ-INSULIN SCH (21:18)
[2021-01-07 02:29] VITALS: BP 119/54
[2021-01-07] MEDS: AMOXICILLIN/CLAV 875-125MG TABLET PO SCH ×3 (02:38→17:56)
[2021-01-07] MEDS: ACETAMINOPHEN 325 MG TABLET PO SCH ×4 (03:58→22:53)
[2021-01-07 05:04] LABS: BASOPHILS % (AUTO) 0 % (0-1); EOSINOPHILS % (AUTO) 4 % (1-7); LYMPHOCYTES % (AUTO) 34 % (22-44); MEAN CORPUSCULAR HEMOGLOBIN 29.9 pg (27.5-34.5); MEAN CORPUSCULAR HGB CONC 33.6 g/dL (33.2-36.2); MEAN PLATELET VOLUME 7.7 fL (7.4-10.4); MONOCYTES % (AUTO) 13 % (2-9); NEUTROPHILS % (AUTO) 48 % (42-75); PLATELET COUNT 441 x10^3/uL (130-400); RED BLOOD COUNT 3.48 x10^6/uL (4.38-5.82); RED CELL DISTRIBUTION WIDTH 13.9 % (9.4-14.8)
[2021-01-07 05:18] LABS: ALANINE AMINOTRANSFERASE 19 U/L (12-78); ALBUMIN 1.8 g/dL (3.4-5.0); ANION GAP 3 mmol/L (5-15); CALCIUM 8.6 mg/dL (8.5-10.1); CHLORIDE 108 mmol/L (98-107); CREATININE 1.04 mg/dL (0.7-1.3)
[2021-01-07 05:20] LABS: ALKALINE PHOSPHATASE 121 U/L (45-117); BILIRUBIN,TOTAL 0.3 mg/dL (0.2-1.0); TOTAL PROTEIN 6.3 g/dL (6.4-8.2)
[2021-01-07] MEDS: CARVEDILOL 6.25 MG TABLET PO SCH ×3 (06:23→17:03)
[2021-01-07] MEDS: INSULIN LISPRO 100 UNITS/ML, PEN SQ-INSULIN SCH ×4 (07:47→20:54)
[2021-01-07 08:14] VITALS: BP 124/71
[2021-01-07] MEDS: MULTIVITAMIN 1 TABLET PO SCH (09:18)
[2021-01-07] MEDS: ENOXAPARIN 40 MG/0.4 ML SQ SCH ×2 (09:18→20:52)
[2021-01-07] MEDS: TIMOLOL OPHTH 0.5%, 5ML LEFTEYE SCH ×2 (09:18→20:54)
[2021-01-07] MEDS: DORZOLAMIDE OPHTH 2%, 10ML LEFTEYE SCH ×2 (09:18→20:50)
[2021-01-07] MEDS: LISINOPRIL 10 MG TABLET PO SCH ×2 (09:19→20:51)
[2021-01-07] MEDS: ESCITALOPRAM 10MG TABLET PO SCH (09:19)
[2021-01-07] MEDS: ASPIRIN 81 MG TABLET EC PO SCH (09:19)
[2021-01-07] MEDS: ISOSORBIDE DINITRATE 10 MG TABLET PO SCH ×3 (09:19→20:51)
[2021-01-07] MEDS: EMTRICITABINE/TENOFOVIR 200 MG/300 MG TABLET PO SCH (09:19)
[2021-01-07 13:31] VITALS: BP 137/67
[2021-01-07 17:00] VITALS: BP 148/69
[2021-01-07 19:24] VITALS: BP 141/66
[2021-01-07] MEDS: MELATONIN 5 MG TABLET PO SCH (20:51)
[2021-01-07] MEDS: SENNOSIDES 8.6 MG TABLET PO SCH (20:52)
[2021-01-07] MEDS: INSULIN GLARGINE 100 UNITS/ML, PEN SQ-INSULIN SCH (20:53)
[2021-01-07] MEDS: OXYcodone 5 MG/5 ML ORAL.SOL UDC PO PRN (20:54)
[2021-01-08 02:49] VITALS: BP 123/64
[2021-01-08] MEDS: AMOXICILLIN/CLAV 875-125MG TABLET PO SCH ×3 (02:53→18:29)
[2021-01-08] MEDS: ACETAMINOPHEN 325 MG TABLET PO SCH ×4 (04:00→21:34)
[2021-01-08 06:52] VITALS: BP 130/63
[2021-01-08] MEDS: TIMOLOL OPHTH 0.5%, 5ML LEFTEYE SCH ×2 (07:59→21:00)
[2021-01-08] MEDS: CARVEDILOL 6.25 MG TABLET PO SCH ×2 (08:06→16:51)
[2021-01-08] MEDS: LISINOPRIL 10 MG TABLET PO SCH ×2 (08:07→21:35)
[2021-01-08] MEDS: ESCITALOPRAM 10MG TABLET PO SCH (08:07)
[2021-01-08] MEDS: EMTRICITABINE/TENOFOVIR 200 MG/300 MG TABLET PO SCH (08:07)
[2021-01-08] MEDS: MULTIVITAMIN 1 TABLET PO SCH (08:07)
[2021-01-08] MEDS: ISOSORBIDE DINITRATE 10 MG TABLET PO SCH ×3 (08:07→21:34)
[2021-01-08] MEDS: ASPIRIN 81 MG TABLET EC PO SCH (08:07)
[2021-01-08] MEDS: DORZOLAMIDE OPHTH 2%, 10ML LEFTEYE SCH ×2 (08:08→21:37)
[2021-01-08] MEDS: INSULIN LISPRO 100 UNITS/ML, PEN SQ-INSULIN SCH ×4 (08:10→21:31)
[2021-01-08] MEDS: ENOXAPARIN 40 MG/0.4 ML SQ SCH ×2 (08:10→21:31)
[2021-01-08 12:26] VITALS: BP 143/70
[2021-01-08 19:41] VITALS: BP 144/69
[2021-01-08] MEDS: SENNOSIDES 8.6 MG TABLET PO SCH (21:00)
[2021-01-08] MEDS: INSULIN GLARGINE 100 UNITS/ML, PEN SQ-INSULIN SCH (21:31)
[2021-01-08] MEDS: MELATONIN 5 MG TABLET PO SCH (21:35)
[2021-01-09 01:40] VITALS: BP 138/71
[2021-01-09] MEDS: AMOXICILLIN/CLAV 875-125MG TABLET PO SCH ×3 (01:46→18:21)
[2021-01-09] MEDS: OXYcodone 5 MG/5 ML ORAL.SOL UDC PO PRN ×3 (01:47→21:15)
[2021-01-09] MEDS: ACETAMINOPHEN 325 MG TABLET PO SCH ×3 (05:27→18:21)
[2021-01-09] MEDS: CARVEDILOL 6.25 MG TABLET PO SCH ×2 (05:27→18:20)
[2021-01-09 07:15] VITALS: BP 154/76
[2021-01-09] MEDS: DORZOLAMIDE OPHTH 2%, 10ML LEFTEYE SCH ×2 (09:08→21:12)
[2021-01-09] MEDS: TIMOLOL OPHTH 0.5%, 5ML LEFTEYE SCH (09:08)
[2021-01-09] MEDS: INSULIN LISPRO 100 UNITS/ML, PEN SQ-INSULIN SCH ×4 (09:08→21:35)
[2021-01-09] MEDS: ASPIRIN 81 MG TABLET EC PO SCH (09:09)
[2021-01-09] MEDS: ESCITALOPRAM 10MG TABLET PO SCH (09:09)
[2021-01-09] MEDS: EMTRICITABINE/TENOFOVIR 200 MG/300 MG TABLET PO SCH (09:09)
[2021-01-09] MEDS: MULTIVITAMIN 1 TABLET PO SCH (09:09)
[2021-01-09] MEDS: ENOXAPARIN 40 MG/0.4 ML SQ SCH ×2 (09:09→21:18)
[2021-01-09] MEDS: ISOSORBIDE DINITRATE 10 MG TABLET PO SCH ×3 (09:09→21:15)
[2021-01-09] MEDS: LISINOPRIL 10 MG TABLET PO SCH ×2 (09:10→21:16)
[2021-01-09 13:00] VITALS: BP 124/71
[2021-01-09 16:15] VITALS: BP 134/68
[2021-01-09 18:44] VITALS: BP 127/67
[2021-01-09] MEDS: SENNOSIDES 8.6 MG TABLET PO SCH (19:46)
[2021-01-09] MEDS: MELATONIN 5 MG TABLET PO SCH (21:00)
[2021-01-09] MEDS: INSULIN GLARGINE 100 UNITS/ML, PEN SQ-INSULIN SCH (21:19)
[2021-01-10] MEDS: ACETAMINOPHEN 325 MG TABLET PO SCH ×4 (00:48→18:43)
[2021-01-10 00:50] VITALS: BP 131/71
[2021-01-10] MEDS: AMOXICILLIN/CLAV 875-125MG TABLET PO SCH ×3 (02:27→18:42)
[2021-01-10 05:22] LABS: HCT (SEDRATE) 30.1 % (39.2-51.8)
[2021-01-10 05:29] LABS: ALBUMIN 2.1 g/dL (3.4-5.0); ANION GAP 3 mmol/L (5-15); CALCIUM 8.7 mg/dL (8.5-10.1); CHLORIDE 108 mmol/L (98-107)
[2021-01-10 05:31] LABS: BASOPHILS % (AUTO) 1 % (0-1); EOSINOPHILS % (AUTO) 4 % (1-7); LYMPHOCYTES % (AUTO) 34 % (22-44); MEAN CORPUSCULAR HEMOGLOBIN 29.6 pg (27.5-34.5); MEAN CORPUSCULAR HGB CONC 33.4 g/dL (33.2-36.2); MEAN PLATELET VOLUME 8.3 fL (7.4-10.4); MONOCYTES % (AUTO) 12 % (2-9); NEUTROPHILS % (AUTO) 49 % (42-75); PLATELET COUNT 339 x10^3/uL (130-400); RED BLOOD COUNT 3.37 x10^6/uL (4.38-5.82); RED CELL DISTRIBUTION WIDTH 14.4 % (9.4-14.8)
[2021-01-10 05:35] LABS: ALANINE AMINOTRANSFERASE 29 U/L (12-78); ALKALINE PHOSPHATASE 105 U/L (45-117); BILIRUBIN,TOTAL 0.6 mg/dL (0.2-1.0); CREATININE 1.13 mg/dL (0.7-1.3); TOTAL PROTEIN 6.6 g/dL (6.4-8.2)
[2021-01-10] MEDS: CARVEDILOL 6.25 MG TABLET PO SCH (06:31)
[2021-01-10 08:00] VITALS: BP 157/80
[2021-01-10] MEDS: EMTRICITABINE/TENOFOVIR 200 MG/300 MG TABLET PO SCH (08:54)
[2021-01-10] MEDS: ENOXAPARIN 40 MG/0.4 ML SQ SCH ×2 (08:54→21:32)
[2021-01-10] MEDS: DORZOLAMIDE OPHTH 2%, 10ML LEFTEYE SCH ×2 (08:54→21:46)
[2021-01-10] MEDS: ISOSORBIDE DINITRATE 10 MG TABLET PO SCH ×3 (08:54→21:31)
[2021-01-10] MEDS: INSULIN LISPRO 100 UNITS/ML, PEN SQ-INSULIN SCH ×4 (08:54→21:48)
[2021-01-10] MEDS: ESCITALOPRAM 10MG TABLET PO SCH (08:55)
[2021-01-10] MEDS: ASPIRIN 81 MG TABLET EC PO SCH (08:55)
[2021-01-10] MEDS: LISINOPRIL 10 MG TABLET PO SCH ×2 (08:55→21:32)
[2021-01-10] MEDS: MULTIVITAMIN 1 TABLET PO SCH (08:55)
[2021-01-10] MEDS: OXYcodone 5 MG/5 ML ORAL.SOL UDC PO PRN ×2 (10:47→21:47)
[2021-01-10 14:00] VITALS: BP 161/81
[2021-01-10] MEDS: CARVEDILOL 12.5 MG TABLET PO SCH (18:43)
[2021-01-10 19:18] VITALS: BP 145/69
[2021-01-10] MEDS: MELATONIN 5 MG TABLET PO SCH (21:00)
[2021-01-10] MEDS: SENNOSIDES 8.6 MG TABLET PO SCH (21:32)
[2021-01-10] MEDS: INSULIN GLARGINE 100 UNITS/ML, PEN SQ-INSULIN SCH (21:48)
[2021-01-11] MEDS: ACETAMINOPHEN 325 MG TABLET PO SCH ×2 (00:22→06:41)
[2021-01-11] MEDS: AMOXICILLIN/CLAV 875-125MG TABLET PO SCH ×3 (02:23→17:11)
[2021-01-11 02:24] VITALS: BP 126/69
[2021-01-11 06:28] VITALS: BP 139/74
[2021-01-11] MEDS: CARVEDILOL 12.5 MG TABLET PO SCH ×2 (06:28→17:12)
[2021-01-11] MEDS: INSULIN LISPRO 100 UNITS/ML, PEN SQ-INSULIN SCH ×4 (07:00→21:33)
[2021-01-11 07:53] VITALS: BP 133/74
[2021-01-11] MEDS: ASPIRIN 81 MG TABLET EC PO SCH (10:02)
[2021-01-11] MEDS: ISOSORBIDE DINITRATE 10 MG TABLET PO SCH ×3 (10:02→20:57)
[2021-01-11] MEDS: ESCITALOPRAM 10MG TABLET PO SCH (10:03)
[2021-01-11] MEDS: LISINOPRIL 10 MG TABLET PO SCH ×2 (10:05→20:57)
[2021-01-11] MEDS: MULTIVITAMIN 1 TABLET PO SCH (10:05)
[2021-01-11] MEDS: EMTRICITABINE/TENOFOVIR 200 MG/300 MG TABLET PO SCH (10:13)
[2021-01-11] MEDS: DORZOLAMIDE OPHTH 2%, 10ML LEFTEYE SCH ×2 (10:14→21:33)
[2021-01-11] MEDS: ENOXAPARIN 40 MG/0.4 ML SQ SCH ×2 (10:14→20:56)
[2021-01-11 12:21] VITALS: BP 152/69
[2021-01-11 17:07] VITALS: BP 151/76
[2021-01-11 19:17] VITALS: BP 163/76
[2021-01-11] MEDS: MELATONIN 5 MG TABLET PO SCH (20:57)
[2021-01-11] MEDS: SENNOSIDES 8.6 MG TABLET PO SCH (20:58)
[2021-01-11] MEDS: OXYcodone 5 MG/5 ML ORAL.SOL UDC PO PRN (20:58)
[2021-01-11] MEDS: INSULIN GLARGINE 100 UNITS/ML, PEN SQ-INSULIN SCH (21:32)
[2021-01-11] MEDS: ACETAMINOPHEN 325 MG TABLET PO PRN (23:18)
[2021-01-12 00:57] VITALS: BP 155/76
[2021-01-12] MEDS: AMOXICILLIN/CLAV 875-125MG TABLET PO SCH ×3 (02:25→18:47)
[2021-01-12] MEDS: CARVEDILOL 12.5 MG TABLET PO SCH ×2 (06:17→17:22)
[2021-01-12 07:58] VITALS: BP 144/73
[2021-01-12] MEDS: EMTRICITABINE/TENOFOVIR 200 MG/300 MG TABLET PO SCH (08:22)
[2021-01-12] MEDS: ASPIRIN 81 MG TABLET EC PO SCH (08:23)
[2021-01-12] MEDS: MULTIVITAMIN 1 TABLET PO SCH (08:23)
[2021-01-12] MEDS: ISOSORBIDE DINITRATE 10 MG TABLET PO SCH ×3 (08:23→21:57)
[2021-01-12] MEDS: ENOXAPARIN 40 MG/0.4 ML SQ SCH ×2 (08:23→21:58)
[2021-01-12] MEDS: ESCITALOPRAM 10MG TABLET PO SCH (08:23)
[2021-01-12] MEDS: LISINOPRIL 10 MG TABLET PO SCH ×2 (08:23→21:57)
[2021-01-12] MEDS: DORZOLAMIDE OPHTH 2%, 10ML LEFTEYE SCH ×2 (08:24→22:00)
[2021-01-12] MEDS: INSULIN LISPRO 100 UNITS/ML, PEN SQ-INSULIN SCH ×4 (08:24→21:59)
[2021-01-12] MEDS: ACETAMINOPHEN 325 MG TABLET PO PRN (10:11)
[2021-01-12 12:25] VITALS: BP 144/75
[2021-01-12 19:48] VITALS: BP 135/71
[2021-01-12] MEDS: MELATONIN 5 MG TABLET PO SCH (21:00)
[2021-01-12] MEDS: SENNOSIDES 8.6 MG TABLET PO SCH (21:00)
[2021-01-12] MEDS: INSULIN GLARGINE 100 UNITS/ML, PEN SQ-INSULIN SCH (22:00)
[2021-01-13 02:30] VITALS: BP 110/64
[2021-01-13] MEDS: AMOXICILLIN/CLAV 875-125MG TABLET PO SCH ×3 (02:30→17:46)
[2021-01-13] MEDS: CARVEDILOL 12.5 MG TABLET PO SCH ×2 (06:40→17:46)
[2021-01-13] MEDS: INSULIN LISPRO 100 UNITS/ML, PEN SQ-INSULIN SCH ×4 (07:00→21:40)
[2021-01-13 08:32] VITALS: BP 120/71
[2021-01-13] MEDS: ESCITALOPRAM 10MG TABLET PO SCH (08:35)
[2021-01-13] MEDS: MULTIVITAMIN 1 TABLET PO SCH (08:35)
[2021-01-13] MEDS: ASPIRIN 81 MG TABLET EC PO SCH (08:36)
[2021-01-13] MEDS: LISINOPRIL 10 MG TABLET PO SCH ×2 (08:36→21:41)
[2021-01-13] MEDS: ISOSORBIDE DINITRATE 10 MG TABLET PO SCH ×3 (08:36→21:42)
[2021-01-13] MEDS: ENOXAPARIN 40 MG/0.4 ML SQ SCH ×2 (08:38→21:40)
[2021-01-13] MEDS: EMTRICITABINE/TENOFOVIR 200 MG/300 MG TABLET PO SCH (10:18)
[2021-01-13] MEDS: DORZOLAMIDE OPHTH 2%, 10ML LEFTEYE SCH ×2 (10:18→21:00)
[2021-01-13 14:40] VITALS: BP 145/74
[2021-01-13 16:17] VITALS: BP 160/80
[2021-01-13] MEDS ORDERED: CELE200C PO (16:56)
[2021-01-13 20:14] VITALS: BP 162/67
[2021-01-13] MEDS: MELATONIN 5 MG TABLET PO SCH (21:00)
[2021-01-13] MEDS: INSULIN GLARGINE 100 UNITS/ML, PEN SQ-INSULIN SCH (21:39)
[2021-01-13] MEDS: SENNOSIDES 8.6 MG TABLET PO SCH (21:41)
== END 2021-01-13 22:00 | DRG 854 ==
LOC: ED 12:32 → EDIP 13:39 → 3N 14:23 → 4NE 01-01 10:16
PROVIDERS: ADMIT Hospitalist; ATTEND Family Medicine
PROC: 5A09357 Assistance with Respiratory Ventilation, Less than 24 Consecutive Hours, Continuous Positive Airway Pressure (ICD-10-PCS; 2020-12-29)
PROC: 5A09357 Assistance with Respiratory Ventilation, Less than 24 Consecutive Hours, Continuous Positive Airway Pressure (ICD-10-PCS; 2020-12-30)
PROC: 5A09357 Assistance with Respiratory Ventilation, Less than 24 Consecutive Hours, Continuous Positive Airway Pressure (ICD-10-PCS; 2020-12-31)
PROC: 0Y6J0Z1 Detachment at Left Lower Leg, High, Open Approach (ICD-10-PCS; principal; 2020-12-31 12:00)
PROC: 5A09357 Assistance with Respiratory Ventilation, Less than 24 Consecutive Hours, Continuous Positive Airway Pressure (ICD-10-PCS; 2021-01-04)
PROC: 5A09357 Assistance with Respiratory Ventilation, Less than 24 Consecutive Hours, Continuous Positive Airway Pressure (ICD-10-PCS; 2021-01-05)
PROC: 5A09357 Assistance with Respiratory Ventilation, Less than 24 Consecutive Hours, Continuous Positive Airway Pressure (ICD-10-PCS; 2021-01-06)
PROC: 5A09357 Assistance with Respiratory Ventilation, Less than 24 Consecutive Hours, Continuous Positive Airway Pressure (ICD-10-PCS; 2021-01-07)
PROC: 5A09357 Assistance with Respiratory Ventilation, Less than 24 Consecutive Hours, Continuous Positive Airway Pressure (ICD-10-PCS; 2021-01-08)
PROC: 5A09357 Assistance with Respiratory Ventilation, Less than 24 Consecutive Hours, Continuous Positive Airway Pressure (ICD-10-PCS; 2021-01-09)
PROC: 5A09357 Assistance with Respiratory Ventilation, Less than 24 Consecutive Hours, Continuous Positive Airway Pressure (ICD-10-PCS; 2021-01-10)
PROC: 5A09357 Assistance with Respiratory Ventilation, Less than 24 Consecutive Hours, Continuous Positive Airway Pressure (ICD-10-PCS; 2021-01-12)
PROC: 5A09357 Assistance with Respiratory Ventilation, Less than 24 Consecutive Hours, Continuous Positive Airway Pressure (ICD-10-PCS; 2021-01-13)
DX: A41.9 Sepsis, unspecified organism (principal); E87.1 Hypo-osmolality and hyponatremia; N17.9 Acute kidney failure, unspecified; L02.416 Cutaneous abscess of left lower limb; L03.116 Cellulitis of left lower limb; M86.172 Other acute osteomyelitis, left ankle and foot; Z68.42 Body mass index [BMI] 45.0-49.9, adult; Z20.822 Contact with and (suspected) exposure to COVID-19; Z66 Do not resuscitate; E66.01 Morbid (severe) obesity due to excess calories; I10 Essential (primary) hypertension; B95.4 Other streptococcus as the cause of diseases classified elsewhere; K59.00 Constipation, unspecified; G47.33 Obstructive sleep apnea (adult) (pediatric); E11.69 Type 2 diabetes mellitus with other specified complication; E11.621 Type 2 diabetes mellitus with foot ulcer; E11.42 Type 2 diabetes mellitus with diabetic polyneuropathy; D50.9 Iron deficiency anemia, unspecified; E11.610 Type 2 diabetes mellitus with diabetic neuropathic arthropathy; E83.51 Hypocalcemia; F32.9 Major depressive disorder, single episode, unspecified; G54.6 Phantom limb syndrome with pain; L97.529 Non-pressure chronic ulcer of other part of left foot with unspecified severity; E11.65 Type 2 diabetes mellitus with hyperglycemia; Z79.4 Long term (current) use of insulin; Z79.899 Other long term (current) drug therapy; Z88.2 Allergy status to sulfonamides; Z91.018 Allergy to other foods; Z90.89 Acquired absence of other organs
CPT/HCPCS: 36415; 80053; 80069; 80202; 82330; 82962; 83036; 83540; 83550; 83605; 83735; 84100; 84145; 85025; 85651; 86140; 87040; 87070; 87075; 87077; 87205; 87635; 88307; 88311; 96361; 96365; G0378; J0295; J0690; J1100; J1170; J1650; J1885; J2185; J2250; J2405; J2543; J2704; J2710; J3010; J3370; A9575; J0330; J0360; J1815; J2270; J2800; J7030; J7040

== ENCOUNTER → 2020-12-28 | Outpatient (CLI) | payer OTHER ==
[~2020-12-28] MED LIST: ASPI-963 PO; DAPA10TA PO; DORZ10DR28 LEFTEYE; EMTR1TAB24 PO; ESCI10TA97 PO; INSU100I18 SQ; INSU3INS SQ; LISI40TA9 PO; METO25TA91 PO; MULT-658 PO; PIOG30TA67 PO
== END | disposition home or self-care (01) ==
LOC: WOUND 10:16
PROVIDERS: ATTEND Nurse Practitioner Family
DX: E11.621 Type 2 diabetes mellitus with foot ulcer (principal); I70.245 Atherosclerosis of native arteries of left leg with ulceration of other part of foot; L97.526 Non-pressure chronic ulcer of other part of left foot with bone involvement without evidence of necrosis; I70.234 Atherosclerosis of native arteries of right leg with ulceration of heel and midfoot; L97.414 Non-pressure chronic ulcer of right heel and midfoot with necrosis of bone; I70.242 Atherosclerosis of native arteries of left leg with ulceration of calf; E11.622 Type 2 diabetes mellitus with other skin ulcer; L97.222 Non-pressure chronic ulcer of left calf with fat layer exposed; L03.116 Cellulitis of left lower limb; E11.40 Type 2 diabetes mellitus with diabetic neuropathy, unspecified; E11.69 Type 2 diabetes mellitus with other specified complication; M86.272 Subacute osteomyelitis, left ankle and foot; I10 Essential (primary) hypertension; E66.01 Morbid (severe) obesity due to excess calories; F32.9 Major depressive disorder, single episode, unspecified; A49.01 Methicillin susceptible Staphylococcus aureus infection, unspecified site; L84 Corns and callosities; Z68.41 Body mass index [BMI] 40.0-44.9, adult; Z89.421 Acquired absence of other right toe(s); Z89.422 Acquired absence of other left toe(s); Z90.89 Acquired absence of other organs; Z79.82 Long term (current) use of aspirin; Z79.4 Long term (current) use of insulin; Z79.899 Other long term (current) drug therapy
CPT/HCPCS: 99213